=== PATIENT | female | born 1945 | race Caucasian/White ===

== ENCOUNTER 2025-02-06 16:43 | Emergency (ER) | payer OTHER ==
[~2025-02-06] VITALS: Ht 167.6 cm; Wt 76.5 kg
[2025-02-06 16:47] VITALS: BP 170/61; PULSE 68; RESP 18; TEMP 98.5; O2SAT 97
[2025-02-06] MEDS: BACITRACIN TOP OINT 1 UD PKG TOP ONE (20:23)
[2025-02-06] MEDS: TETANUS-DIPTH-ACEL PERTUSSIS 0.5ML SYR Tdap IM ONE (20:23)
--- NOTE | 2025-02-06 20:35 | ED.PDOC ---
History of Present Illness HPI Comments 79-year-old female presents for friend for chief complaint of puncture wound to right anterior thigh status post dog bite. Patient reports on being bitten by an unknown domesticated dog of unknown vaccination status, earlier, today at 3:00 p.m.. Denies any additional injuries, fever, chills, further acute symptoms. Last tetanus shot is unknown. Chief Complaint: Animal Bite Time Seen by MD: 19:50 Reviewed Notes: Nurses Notes, Medications, Allergies Allergies: Coded Allergies: Amoxicillin (Verified Allergy, Unknown, 02/06/25) Information Source: Patient Mode of Arrival: Ambulatory Severity: Moderate Timing: Hours Duration: Since onset Prehospital treatment: None Past Medical History PAST MEDICAL HISTORY: Denies Surgical History: Denies all surgeries [employer] History: No Pertinent [employer] History Social History Smoker: Non-Smoker Alcohol: Denies ETOH Use Drugs: Denies Drug Use Lives In: Assisted Care All Other Systems: Reviewed and Negative (Comprehensive review of systems are negative unless otherwise stated in HPI) Physical Exam General Appearance: No Apparent Distress, Normal HEENT: Normal ENT Inspection, Pharynx Normal, TMs Normal Neck: Full Range of Motion, Non-Tender, Normal, Normal Inspection Respiratory: Chest Non-Tender, Lungs Clear, No Accessory Muscle Use, No Respiratory Distress, Normal Breath Sounds Cardiovascular: No Edema, No JVD, No Murmur, No Gallop, Normal Peripheral Pulses, Regular Rate/Rhythm Breast Exam: Deferred Gastrointestinal: No Organomegaly, Non Tender, No Pulsatile Mass, Normal Bowel Sounds, Soft Genitalia: Deferred Pelvic: Deferred Rectal: Deferred Extremities: No calf tenderness, Normal capillary refill, Normal inspection, No rmal range of motion, Non-tender, No pedal edema Musculoskeletal : Apperance: Normal Neurologic: Alert, 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 Was a procedure done?: No Differential Dx Considerations may include: Puncture wound, avulsions, laceration, retained foreign body, among others X-Ray, Labs, Meds, VS Vital Signs Date Time Temp Pulse Resp B/P (MAP) Pulse Ox O2 Delivery O2 Flow Rate FiO2 02/06/25 16:47 Room Air 02/06/25 16:47 98.5 68 18 170/61 97 98.5 Current Medications Medications (Trade) Dose Ordered Sig/Thai Route Start Time Stop Time Status Last Admin Diphtheria/ Tetanus/Acell Pertussis (Boostrix T-Dap) 0.5 ml ONCE ONCE IM 02/06/25 20:00 02/06/25 20:01 DC 02/06/25 20:23 Bacitracin 1 applic ONCE ONCE TOP 02/06/25 20:00 02/06/25 20:01 DC 02/06/25 20:23 Time of 1ST Reevaluation: 20:20 Reevaluation 1ST: Unchanged Patient Education/Counseling: Diagnosis, Treatment, Need For Follow Up Family Education/Counseling: Diagnosis, Treatment, Need For Follow Up Additional Information Additional historians: Friend Previous medical visits reviewed: None Additional imaging and studies ordered and reviewed: None Labs ordered and reviewed: None SEPSIS Sepsis Screen Date sepsis recognized/suspect: Feb 06, 2025 Time Sepsis recognized/suspect: 1647 Recent Procedure: No On Antibiotic Therapy: No Respiratory Rate >20: No Heart Rate >90: No Temp<36 C (96.8 F) or >38.3 C: No SBP <90 or MAP <65 mmHG: No New Acute Mental Status Change: No Is the patient on CPAP, BIPAP,: No Vital Signs Date Time Temp Pulse Resp B/P (MAP) Pulse Ox O2 Delivery O2 Flow Rate FiO2 02/06/25 16:47 Room Air 02/06/25 16:47 98.5 68 18 170/61 97 98.5 Medications Medications Dose Ordered Sig/Thai Route Start Time Stop Time Status Last Admin Dose Admin Bacitracin 1 applic ONCE ONCE TOP 02/06/25 20:00 02/06/25 20:01 DC 02/06/25 20:23 Diphtheria/ Tetanus/Acell Pertussis 0.5 ml ONCE ONCE IM 02/06/25 20:00 02/06/25 20:01 DC 02/06/25 20:23 Departure 1 Departure Impression: Primary Impression: Dog bite Disposition: HOME / SELF CARE / HOMELESS Condition: Stable Additional Instructions: You were bit by a dog and have a skin tear. For pain you can take the followinam: Ibuprofen 400mg with food Noon: Acetaminophen 1000mg 4pm: Ibuprofen 400mg with food 8pm: Acetaminophen 1000mg You were given a tetanus shot You should follow up with your regular doctor within one week to ensure you are doing better. If your symptoms worsen or you have any other concerns then please return to the ER. Discharged With: Self Critical Care Note Critical Care Time?: No Stability Stability form required: No Heart Score Heart Score: Heart Score Response (Comments) Value History N/A 0 EKG N/A 0 Age N/A 0 Risk Factors N/A 0 Troponin N/A 0 Total 0 I personally scribed for FLORY LUNA MD ([email or web address]) on 02/06/25 at 20:35. Electronically submitted by Solitario Avery ([email or web address]). FLORY LUNA MD Feb 06, 2025 20:35
== END 2025-02-06 20:31 | disposition home or self-care (01) ==
LOC: ER 16:43
DX: S71.131A Puncture wound without foreign body, right thigh, initial encounter (principal); Z88.0 Allergy status to penicillin; W54.0XXA Bitten by dog, initial encounter; Y93.89 Activity, other specified; Y92.89 Other specified places as the place of occurrence of the external cause; Y99.8 Other external cause status
CPT/HCPCS: 90471; 90715